=== PATIENT | male | born 1955 | race Caucasian/White ===

== ENCOUNTER → 2017-01-07 | Outpatient (CLI) | payer OTHER ==
[2017-01-07 15:35] LABS: ALT 50 U/L (21-72); AST 39 U/L (17-59); Cholesterol 176 mg/dL (<200); Creatine Kinase 81 U/L (55-170); HDL Cholesterol 31 mg/dL (40-60); Triglycerides 284 mg/dL (<150)
== END | disposition home or self-care (01) ==
LOC: LABWHC1 15:03
PROVIDERS: ATTEND Internal Medicine Interventional Cardiology
DX: I25.10 Atherosclerotic heart disease of native coronary artery without angina pectoris (principal); E78.5 Hyperlipidemia, unspecified
CPT/HCPCS: 36415; 80061; 82550; 84450; 84460

== ENCOUNTER → 2017-12-17 | Outpatient (CLI) | payer OTHER ==
[2017-12-17 09:37] LABS: HCT 48.6 % (39.0-53.0); HGB 16.5 gm/dL (13.0-17.5); MCH 29.3 pg (25.0-35.0); MCHC 33.9 g/dL (31.0-37.0); MCV 86.3 fL (80.0-100.0); Mean Platelet Volume 8.1; Platelet Count 290 k/uL (150-450); RBC 5.62 m/uL (4.30-5.90)
[2017-12-17 09:47] LABS: Anion Gap 16 mmol/L; Blood Urea Nitrogen 20 mg/dL (9-20); Calcium 10.5 mg/dL (8.4-10.2); Carbon Dioxide 25 mmol/L (22-30); Chloride 100 mmol/L (98-107); Cholesterol 209 mg/dL (<200); Glucose 106 mg/dL (74-99); HDL Cholesterol 30 mg/dL (40-60); LDL Cholesterol,Calculated 115 mg/dL (0-99); Potassium 4.7 mmol/L (3.5-5.1); Sodium 141 mmol/L (137-145); Triglycerides 318 mg/dL (<150)
== END | disposition home or self-care (01) ==
LOC: LABWHC1 09:11
PROVIDERS: ATTEND Internal Medicine Interventional Cardiology
DX: I25.10 Atherosclerotic heart disease of native coronary artery without angina pectoris (principal); I10 Essential (primary) hypertension; E78.5 Hyperlipidemia, unspecified
CPT/HCPCS: 36415; 80048; 80061; 85027

== ENCOUNTER → 2019-11-28 | Outpatient (CLI) | payer SELFPAY ==
[2019-11-28 13:59] LABS: HCT 45.2 % (39.0-53.0); HGB 14.6 gm/dL (13.0-17.5); MCH 29.6 pg (25.0-35.0); MCHC 32.3 g/dL (31.0-37.0); MCV 91.4 fL (80.0-100.0); Mean Platelet Volume 8.7; Platelet Count 300 k/uL (150-450); RBC 4.94 m/uL (4.30-5.90); RDW 12.7 % (11.5-15.5); WBC 10.4 k/uL (3.8-10.6)
[2019-11-28 14:15] LABS: African American GFR (CKD) >90 (>60 ml/min/1.73 sqM); Anion Gap 9 mmol/L; Blood Urea Nitrogen 16 mg/dL (9-20); Calcium 9.9 mg/dL (8.4-10.2); Carbon Dioxide 26 mmol/L (22-30); Chloride 103 mmol/L (98-107); Glucose 126 mg/dL (74-99); Non-African American GFR(CKD) >90 (>60 ml/min/1.73 sqM); Potassium 4.4 mmol/L (3.5-5.1); Sodium 138 mmol/L (137-145)
== END | disposition home or self-care (01) ==
LOC: LABPAT 12:20
PROVIDERS: ATTEND Internal Medicine Interventional Cardiology
DX: Z01.818 Encounter for other preprocedural examination (principal); I25.10 Atherosclerotic heart disease of native coronary artery without angina pectoris
CPT/HCPCS: 80048; 85027

== ENCOUNTER 2019-12-07 08:42 | Day surgery (SDC) | payer OTHER ==
[2019-12-06 10:45] VITALS: BMI 27.3
[~2019-12-07 08:42] MED LIST: ALPRAZolam 0.25 MG TAB PO PRN; ALPRAZolam 0.5 MG TAB PO PRN; ASPIRIN 325 MG TAB PO ONE; ATORVASTATIN 80 MG TAB PO ONE; NITROGLYCERIN SL TABS 0.4 MG TAB SUBLINGUAL PRN; SODIUM CHLORIDE 0.9% 1,000 ML in EMPTY BAG 1 BAG IV ONE
[2019-12-07 09:10] VITALS: RESP 16; TEMP 98.2
[2019-12-07] MEDS ORDERED: LIDOCAINE 1% INJ 10MG/ML (20 ML MDV) ONE (09:28)
[2019-12-07] MEDS: MIDAZOLAM 2 MG/2 ML VIAL IV ONE ×2 (09:45→09:49)
[2019-12-07] MEDS ORDERED: LIDOCAINE 1% INJ 10MG/ML (20 ML MDV) SQ ONE (09:47)
[2019-12-07] MEDS ORDERED: IOPAMIDOL-370 100ML BTL INJ ONE ×2 (10:05→10:24)
[2019-12-07] MEDS ORDERED: IOPAMIDOL-370 50ML BTL INJ ONE (10:23)
[2019-12-07] MEDS ORDERED: IOPAMIDOL-300 50ML BTL INJ ONE (10:28)
[2019-12-07] MEDS ORDERED: FUROSEMIDE 10 MG/ML 4 ML VIAL ONE (10:29)
[2019-12-07] MEDS ORDERED: FUROSEMIDE 10 MG/ML 4 ML VIAL IV ONE (10:30)
[2019-12-07] MEDS ORDERED: SODIUM CHLORIDE 0.9% 1,000 ML IV SCH (11:15)
[2019-12-07 13:37] VITALS: BP 109/67; PULSE 61
--- NOTE | 2019-12-07 18:34 | CC ---
CARDIAC CATHETERIZATION REPORT DATE OF SERVICE: 12/07/2019 PROCEDURE: 1. Left heart catheterization and coronary angiography. 2. Selective injection of bypass grafts. 3. Left ventriculography. 4. Aortography. PERFORMED BY: Dr. Denilson Blum. Moderate conscious sedation time was 54 minutes. Patient was administered Versed. His oxygen saturation, hemodynamics and EKG were monitored closely. CLINICAL INFORMATION: Mr. Karl Anderson is a 64-year-old gentleman with a known history of CAD and hypertension and hyperlipidemia. In 2003 he underwent aortocoronary bypass surgery with a LEWIS to LAD, free right internal mammary artery graft to the first obtuse marginal, and a free left radial graft to the RCA and vein graft to the diagonal. He has since then been followed up on and off. Recently I performed a stress echo which revealed anteroseptal ischemia at 82% of predicted maximal heart rate. 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 However, he has not been very compliant with medications. After some deliberation and discussion, he was agreeable for cardiac cath and was brought in for the procedure electively. PROCEDURE NOTE: Under local anesthesia and strict aseptic precautions, a 6-[place]ovenian introducer was placed in the right femoral artery. Using a standard left Tavo catheter I performed selective coronary angiography of the left coronary artery. A Neelima catheter was used to perform selective injection of the [place] RCA, the free radial artery graft to the right coronary artery, the free right internal mammary artery graft to the first obtuse marginal. I used the same catheter to perform a LEWIS injection. I could not get the vein graft to the diagonal. I used an AR2 catheter, and even with this I could not cannulate the diagonal vein graft, and I am presuming it is occluded. I then used a pigtail catheter to check LV pressures, performed LV-gram in 30-degree MIGUEL projection, and in the LENNOX projection I performed an aortogram to visualize the grafts. The patient tolerated the procedure well without complication. The sheath was taken out and Angio-Seal device used to secure hemostasis and he was sent to the room in a stable condition. CARDIAC CATHETERIZATION FINDINGS: The left ventricular end-diastolic pressure was about 15 mmHg without any gradient across the aortic valve. CORONARY ANGIOGRAPHY FINDINGS: RIGHT CORONARY ARTERY: This vessel is totally occluded, seen as a stump. No antegrade flow. LEFT MAIN CORONARY ARTERY: This has 80% proximal ostial lesion. It bifurcates into LAD and circumflex. LAD is evident. It seems to opacify the diagonal, but circumflex is occluded. SAPHENOUS VEIN GRAFT TO THE DIAGONAL BRANCH: This graft was not visualized and presumably occluded. FREE RIGHT INTERNAL MAMMARY ARTERY GRAFT TO THE FIRST OBTUSE MARGINAL: This graft is widely patent in its origin, course, insertion site and opacified obtuse marginal has minor irregularities, no significant disease. FREE RADIAL ARTERY GRAFT TO THE RIGHT CORONARY ARTERY: This graft has no significant disease in its origin and course and insertion site. After the insertion, it bifurcates into PDA and PLV. The PDA seems to have minor irregularities, but the PLV has a significant tight 80% to 90% lesion. Just before the insertion, the graft also has a 70% calcified area of narrowing. The graft distally just before the insertion site has about 70% narrowing, and after insertion the PLV has 80% narrowing in the mid portion. PDA seems to be free of significant disease. LEFT INTERNAL MAMMARY ARTERY GRAFT TO LEFT ANTERIOR DESCENDING: This graft is patent at its origin, course and insertion site. Beyond insertion there is not much antegrade flow noted. On a very strong powerful injection I am seeing some antegrade flow, but there is diffuse disease in the LAD of about 70% to 80%. LAD appears to be small in caliber or it is underfilled because of the stenosis. However, LAD is patent, but there is significant disease within the LAD but not in the graft. LEFT VENTRICULOGRAM: This was performed in 30-degree MIGUEL projection and revealed left ventricle is of normal size with minimal anteroapical hypokinesia. Ejection fraction of 50% with minimal mitral regurgitation. AORTOGRAM: This was performed in LENNOX projection and revealed a normal-sized aortic root, no significant aortic regurgitation. I could not see the diagonal graft, but I was able to barely visualize the graft to the obtuse marginal and the graft to the RCA was very evident. No significant aortic regurgitation. FINAL IMPRESSION: This patient has total occlusion of RCA and circumflex. Left main is 80% and diagonal that is opacified is being supplied by the 80% ostial left main. [place] LAD appears to be occluded. The vein graft to the diagonal was not visualized, presumably closed. The right internal mammary artery free graft to the first obtuse marginal is patent without significant disease. The radial artery graft to the RCA is free of significant disease, but after insertion of the RCA the PLV has 80% lesion. PDA has minor irregularities. The mammary artery graft is patent, but the LAD has diffuse disease. The body of the LAD after the insertion site has a long area of narrowing, almost 80%. There was no gradient across the aortic valve. LV-gram revealed ejection fraction of about 50% with mild anteroapical hypokinesia and aortogram did not reveal any significant aortic regurgitation. The vein graft to the diagonal was not visualized. RECOMMENDATIONS: Findings were discussed at length with the patient and his sister. We will discharge him today. I will sit down in the office and discuss with him and also seek a surgical opinion, and then we will discuss the options of redo surgery versus PCI of the PLV branch of RCA through the graft and also the distal aspect of the graft before it attaches to the vessel. These issues were discussed at length with the patient and his sister, and I will revisit this issue in the office later on this week. MMODL / IJN: [id number] /
--- NOTE | 2019-12-09 09:50 | CDI ---
Outpatient Documentation Clarification Form Date: 12/09/19 CDS/Manager Of Compliance Name: Mita Jane Phone: If any questions, call Diana [facility] Case Manager at [phone] Patient Name: Karl Anderson Admit Date: 12/09/19 Discharge Date: 12/09/19 ATTENTION: The [facility] Coding Staff appreciate your assistance in clarifying documentation. Please respond to the clarification below the line at the bottom and electronically sign. The [facility] Coding staff will review the response and follow-up if needed. Please note: Queries are made part of the Legal Health Record. If you have any questions, please contact the Behavioral Health Case Manager. Dear Dr. Blum, Please provide clarification as to whether the vein graft to the RCA is or is not narrowed. On the Procedure Note under findings under Free radial Graft to the RCA it is stated that the PLV has significant tight 80-% to 90% lesions. Just before the insertion. The graft also has 70% calcified area of narrowing. The graft distally just before the insertion site has about 70% narrowing. On the procedure note under Final Impression, it is stated that the radial artery graft is free from significant disease with no mention of the 70% calcification. Please clarify. Thank you for your kind consideration. Free Rad Art graft has 70% calcified lesion before insertion and als in [place] PLV after insertion. GABINO
== END 2019-12-07 17:26 | disposition home or self-care (01) ==
LOC: CATHCVL 08:42
PROVIDERS: ATTEND Internal Medicine Interventional Cardiology
DX: I25.110 Atherosclerotic heart disease of native coronary artery with unstable angina pectoris (principal); I25.810 Atherosclerosis of coronary artery bypass graft(s) without angina pectoris; I25.84 Coronary atherosclerosis due to calcified coronary lesion; I25.82 Chronic total occlusion of coronary artery; I10 Essential (primary) hypertension; Z91.14 Patient's other noncompliance with medication regimen; R94.39 Abnormal result of other cardiovascular function study; E78.00 Pure hypercholesterolemia, unspecified; Z79.82 Long term (current) use of aspirin; Z79.899 Other long term (current) drug therapy
CPT/HCPCS: 93459; 93567; C1769 ×3; C1760; C1894; J2250; J1940; J2001; Q9967 ×3

== ENCOUNTER 2020-01-10 09:04 | Day surgery (SDC) | payer OTHER ==
[~2020-01-10 09:04] MED LIST changes: -ASPIRIN 325 MG TAB PO ONE; +ASPIRIN 325 MG TAB PO STA; -ATORVASTATIN 80 MG TAB PO ONE; +ATORVASTATIN 80 MG TAB PO STA
[2020-01-10 09:54] LABS: Basophils # (A) 0.1 k/uL (0-0.2); Basophils % (A) 1 %; Eosinophils # (A) 0.4 k/uL (0-0.7); Eosinophils % (A) 4 %; HGB 14.1 gm/dL (13.0-17.5); Lymphocytes # (A) 1.6 k/uL (1.0-4.8); Lymphocytes % (A) 16 %; MCH 30.9 pg (25.0-35.0); MCHC 34.5 g/dL (31.0-37.0); MCV 89.7 fL (80.0-100.0); Mean Platelet Volume 8.7; Monocytes # (A) 0.7 k/uL (0-1.0); Monocytes % (A) 7 %; Neutrophils # (A) 7.2 k/uL (1.3-7.7); Neutrophils % (A) 72 %; Platelet Count 277 k/uL (150-450); RBC 4.57 m/uL (4.30-5.90); RDW 13.5 % (11.5-15.5)
[2020-01-10 10:17] LABS: African American GFR (CKD) >90 (>60 ml/min/1.73 sqM); Anion Gap 10 mmol/L; Blood Urea Nitrogen 15 mg/dL (9-20); Calcium 10.1 mg/dL (8.4-10.2); Carbon Dioxide 23 mmol/L (22-30); Chloride 106 mmol/L (98-107); Glucose 99 mg/dL (74-99); Non-African American GFR(CKD) >90 (>60 ml/min/1.73 sqM); Potassium 4.5 mmol/L (3.5-5.1); Sodium 139 mmol/L (137-145)
[2020-01-10] MEDS ORDERED: LIDOCAINE 1% INJ 10MG/ML (20 ML MDV) ONE (10:55)
[2020-01-10] MEDS ORDERED: fentaNYL (PF) 50 MCG/ML 2 ML AMP ONE (11:30)
[2020-01-10] MEDS ORDERED: MIDAZOLAM 2 MG/2 ML VIAL IVP ONE (11:30)
[2020-01-10] MEDS ORDERED: fentaNYL (PF) 50 MCG/ML 2 ML AMP IVP ONE (11:30)
[2020-01-10] MEDS ORDERED: LIDOCAINE 1% INJ 10MG/ML (20 ML MDV) SQ ONE ×2 (11:30→11:31)
[2020-01-10] MEDS ORDERED: BIVALIRUDIN BOLUS 250 MG/50 ML IV ONE (11:46)
[2020-01-10] MEDS ORDERED: BIVALIRUDIN 250 MG in SODIUM CHLORIDE 0.9% 50 ML IV ONE (11:47)
[2020-01-10] MEDS ORDERED: NITROGLYCERIN 1000MCG/10ML SYRINGE INTRACORON ONE ×2 (11:55→12:30)
[2020-01-10] MEDS ORDERED: IOPAMIDOL-370 100ML BTL INJ ONE ×3 (12:04→12:42)
[2020-01-10] MEDS: NITROGLYCERIN 1000MCG/10ML SYRINGE INTRACORON ONE ×2 (12:17→12:27)
[2020-01-10] MEDS ORDERED: CLOPIDOGREL 75 MG TAB PO ONE (12:27)
[2020-01-10] MEDS ORDERED: CLOPIDOGREL 75 MG TAB ONE (12:28)
[2020-01-10] MEDS ORDERED: niCARdipine Syringe (1,000 mcg/10 mL) INTRACORON ONE (12:33)
--- NOTE | 2020-01-10 17:05 | PTCA ---
PERCUTANEOUSTRANS CORORONARY ANGIOGRAPHY PERCUTANEOUS CORONARY INTERVENTION: DATE OF SERVICE: 01/10/2020 PROCEDURE: PTCA and stenting of mid LAD through the left internal mammary artery graft. PERFORMED BY: Dr. Denilson Blum. CLINICAL INFORMATION: Mr. Karl Anderson is a 64-year-old gentleman with a history of aortocoronary bypass surgery in 2003 with a LEWIS to LAD, a free right internal mammary artery graft to the first obtuse marginal, and a free radial artery graft to the RCA, and a vein graft to the diagonal. The vein graft to the diagonal was not visualized on the cardiac cath performed in November of this year. His LEWIS to LAD was patent, but it appeared that there was not much flow in the LAD and there is evidence of ischemia in the anteroseptal portion of the dobutamine echo. He also had a patent right internal mammary graft, which was a free DILMA graft to the first OM, without disease in the OM. The free radial artery graft to the RCA had disease before the insertion site and also in the branches of the RCA, particularly the PLV branch. I reviewed the images with the surgeon and we made a decision to pursue the LEWIS intervention; specifically the insertion site and beyond the insertion site where there appeared to be a total occlusion. He would also require intervention of the RCA branches if he has ischemia in that region down the road. This was explained to the patient in detail. Risks, benefits and options were explained. He was brought in for the procedure electively. PROCEDURE NOTE: Under local anesthesia and strict aseptic precautions, a 6-Czech introducer was placed in the right femoral artery. I had to use a dilator because of some scar tissue. I initially tried a left internal mammary artery guide, but I had difficulty positioning the guide because of the angulation of the guide tip. I switched over to a Neelima guide catheter, and with this I had a better seating. I used a run-through wire, and with this wire I was able to cross the LEWIS beyond the insertion site, but I could not get beyond the mid LAD, where there was a total occlusion. I used a SuperCross straight catheter for support; with this also I had difficulty. I then switched over to a long Whisper wire, and with this I was able to cross the total occlusion and the wire was kept distally. I gave inflation at the site of insertion and beyond with a 2.0 caliber [place] Trek balloon, but I could not advance the balloon to the total occlusion. I used a 1.5 caliber 12 mm Trek balloon; with this I gave a dilatation and then the balloon burst and I had to switch this to another 1.5 balloon. With this I gave another additional inflation. The wire which was going into the branch finally went all the way into the apex. I gave multiple inflations with a 2.0 balloon and then eventually using the same wire I advanced a 15 mm long [place] 2.0 caliber drug-eluting stent and deployed this at 13 atmospheres. Patient did not have chest pain. He had excellent angiographic result. Beyond the stented segment, there was still some diffuse disease, but there was an excellent MARGUERITE-3 flow noted. He was given 600 mg of Plavix. He also received Angiomax bolus and infusion. The sheath was taken out and an Angio-Seal device used to secure hemostasis. A single [place] stent was placed in the mid LAD beyond the total occlusion. Excellent angiographic result without complication was achieved. There was a good MARGUERITE-3 flow distally. I expect patient to be discharged tomorrow if he remains stable. Moderate conscious sedation time was 72 minutes. Patient was administered Versed. Oxygen saturation, hemodynamics and EKG were monitored closely. YOBANIL / IJN: [id number] /
[2020-01-10] MEDS: SODIUM CHLORIDE 0.9% 1,000 ML IV SCH (19:05)
[2020-01-10] MEDS: carvediloL 3.125 MG TAB PO SCH (20:40)
[2020-01-11] MEDS: SODIUM CHLORIDE 0.9% 1,000 ML IV SCH (06:55)
[2020-01-11 07:25] LABS: Basophils # (A) 0.1 k/uL (0-0.2); Basophils % (A) 1 %; Eosinophils # (A) 0.3 k/uL (0-0.7); Eosinophils % (A) 3 %; HCT 38.7 % (39.0-53.0); HGB 12.6 gm/dL (13.0-17.5); Lymphocytes # (A) 1.3 k/uL (1.0-4.8); Lymphocytes % (A) 14 %; MCH 29.5 pg (25.0-35.0); MCHC 32.6 g/dL (31.0-37.0); MCV 90.6 fL (80.0-100.0); Mean Platelet Volume 8.5; Monocytes # (A) 0.7 k/uL (0-1.0); Monocytes % (A) 7 %; Neutrophils % (A) 75 %; Platelet Count 218 k/uL (150-450); RBC 4.27 m/uL (4.30-5.90); RDW 13.4 % (11.5-15.5); WBC 9.4 k/uL (3.8-10.6)
[2020-01-11 07:38] LABS: African American GFR (CKD) >90 (>60 ml/min/1.73 sqM); Anion Gap 5 mmol/L; Blood Urea Nitrogen 12 mg/dL (9-20); Calcium 8.9 mg/dL (8.4-10.2); Carbon Dioxide 26 mmol/L (22-30); Chloride 108 mmol/L (98-107); Glucose 95 mg/dL (74-99); Non-African American GFR(CKD) >90 (>60 ml/min/1.73 sqM); Potassium 4.4 mmol/L (3.5-5.1); Sodium 139 mmol/L (137-145)
[2020-01-11] MEDS ORDERED: ASPIRIN 81 MG PO SCH (09:00)
[2020-01-11] MEDS ORDERED: amLODIPine 10 MG TAB PO SCH (09:00)
[2020-01-11] MEDS ORDERED: LISINOPRIL-HCTZ 20-25 MG 1 EACH TAB PO SCH (09:00)
[2020-01-11] MEDS ORDERED: ATORVASTATIN 40 MG TAB PO SCH (09:00)
[2020-01-11] MEDS ORDERED: CLOPIDOGREL 75 MG TAB PO SCH (09:00)
[2020-01-11] MEDS: carvediloL 3.125 MG TAB PO SCH (09:11)
[2020-01-11 09:26] VITALS: BP 113/72; PULSE 60; RESP 16; TEMP 97.9
--- NOTE | 2020-01-11 10:53 | P.DS ---
Providers Attending physician: Yousuf Blum Primary care physician: [facility] Course: This is a pleasant 64-year-old male past medical history significant for coronary artery bypass grafting in 2003 with a LEWIS to LAD, free right internal mammary to the first OM and a free radial graft to the RCA. He came in yesterday for an elective PCI of the LEWIS to LAD. Procedure was performed unremarkably and he is seen and examined resting comfortably in bed in no acute distress. Right femoral access site clean, dry and intact with no evidence of hematoma, bruising, bleeding or tenderness. He denies symptoms of chest pain, shortness of breath, dizziness or palpitations. Repeat EKG obtained this morning is revealing sinus mechanism with no acute ST or T wave abnormalities noted. Blood pressure 113/72 heart rate 68 afebrile maintaining oxygen saturation on room air. Laboratory data reviewed, WBC 9.4, hemoglobin 12.6, platelets 218, sodium 139, potassium 4.4, creatinine 0.78. Currently maintained on aspirin 81 mg daily, Plavix 75 mg daily, amlodipine 10 mg daily, atorvastatin 40 mg daily, carvedilol 3.125 mg twice a day and lisinopril/HCTZ 20/25 mg daily. Follow-up in the office with Dr. Blum next week on January 15 at 3:15 PM. New prescriptions have been sent to the pharmacy for Plavix. Patient Condition at Discharge: Stable Plan - Discharge Summary Discharge Rx Participant: No New Discharge Prescriptions: New Clopidogrel [Plavix] 75 mg PO DAILY #90 tab Continue carvediloL [Coreg] 3.125 mg PO BID amLODIPine [Norvasc] 10 mg PO QAM Lisinopril-Hctz 20-25 mg [Zestoretic 20-25] 1 tab PO QAM Atorvastatin [Lipitor] 40 mg PO QAM Aspirin [Adult Low Dose Aspirin EC] 81 mg PO QAM Discharge Medication List Aspirin [Adult Low Dose Aspirin EC] 81 mg PO QAM 12/06/19 [History] Atorvastatin [Lipitor] 40 mg PO QAM 12/06/19 [History] Lisinopril-Hctz 20-25 mg [Zestoretic 20-25] 1 tab PO QAM 12/06/19 [History] amLODIPine [Norvasc] 10 mg PO QAM 12/06/19 [History] carvediloL [Coreg] 3.125 mg PO BID 12/06/19 [History] Clopidogrel [Plavix] 75 mg PO DAILY #90 tab 01/11/20 [Rx] Follow up Appointment(s)/Referral(s): Yousuf Blum MD [STAFF PHYSICIAN] - 01/16/20 3:15 pm Patient Instructions/Handouts: *Surgery [facility] - After Heart Catheterization - Shuttle Veneering Supervisor Instructions
== END 2020-01-11 12:24 | disposition home or self-care (01) ==
LOC: CATHCVL 09:04 → 3NCARDOBS 12:47 → CATHCVL 01-11 12:24
PROVIDERS: ATTEND Internal Medicine Interventional Cardiology
DX: I25.110 Atherosclerotic heart disease of native coronary artery with unstable angina pectoris (principal); I25.82 Chronic total occlusion of coronary artery; I10 Essential (primary) hypertension; E78.00 Pure hypercholesterolemia, unspecified; Z95.1 Presence of aortocoronary bypass graft; Z79.82 Long term (current) use of aspirin; Z79.02 Long term (current) use of antithrombotics/antiplatelets; Z79.899 Other long term (current) drug therapy
CPT/HCPCS: 80048 ×2; 85025 ×2; C9607; C1760; C1769 ×5; C1887 ×3; C1725 ×2; C1894; C1874; J2250; J2001; J3010; J0583; Q9967

== ENCOUNTER → 2021-09-23 | Outpatient (CLI) | payer OTHER ==
[2021-09-23 15:59] LABS: ALT 27 U/L (10-49); AST 26 U/L (14-35); Chol/HDL Ratio 4.18 Ratio; Creatine Kinase 102 U/L (35-257); LDL Cholesterol,Calculated 78.8 mg/dL (0.0-131.0)
== END | disposition home or self-care (01) ==
LOC: LABWHC1 09:11
PROVIDERS: ATTEND Internal Medicine Interventional Cardiology
DX: I25.10 Atherosclerotic heart disease of native coronary artery without angina pectoris (principal); E78.5 Hyperlipidemia, unspecified
CPT/HCPCS: 36415; 80061; 82550; 84450; 84460